=== PATIENT | male | born 1970 | race Two or more races ===

== ENCOUNTER 2021-06-14 13:58 | Inpatient (IN) | payer MEDICAID, OTHER ==
[~2021-06-14] VITALS: Ht 167.6 cm; Wt 100.2 kg
[2021-06-14] MEDS ORDERED: methylPREDNISolone SOD SUCC 125 MG/2 ML VL IV ONE (14:15)
[2021-06-14] MEDS ORDERED: ACETAMINOPHEN 325 MG TAB PO ONE (14:26)
[2021-06-14 16:15] LABS: Basophils # (auto) 0 10 ^3/uL (0-0.2); Basophils % (auto) 0.6 % (0.0-2.0); Eosinophils # (auto) 0 10 ^3/uL (0-0.8); Hematocrit 43.7 % (41.0-53.0); Hemoglobin 14.8 g/dL (13.5-17.5); Lymphocytes # (auto) 0.5 10 ^3/uL (0.4-5.4); Lymphocytes % (auto) 10.9 % (10.0-50.0); Mean Corpuscular Hemoglobin 30.4 pg (28.0-32.0); Mean Corpuscular Hgb Conc. 33.8 g/dL (32.0-36.0); Monocytes # (auto) 0.3 10 ^3/uL (0-1.3); Monocytes % (auto) 6.6 % (0.0-12.0); Neutrophils # (auto) 4.1 10 ^3/uL (1.6-8.6); Neutrophils % (auto) 81.9 % (37.0-80.0); Nucleated Red Blood Cells % 0.1 %; Red Blood Cells 4.86 10^6/uL (4.5-5.90); Red Cell Distribution Width 13.9 % (11.8-14.3)
[2021-06-14 16:25] LABS: Albumin 3.1 g/dL (3.4-5.0); Calcium 8.2 mg/dL (8.5-10.1); Magnesium 2.4 mg/dL (1.6-2.6); Potassium 3.6 mmol/L (3.5-5.1)
[2021-06-14 16:33] LABS: BUN/Creatinine Ratio 19.1; Bilirubin, Total 0.9 mg/dL (0.2-1.0); Total Protein 7.8 g/dL (6.4-8.2)
[2021-06-14] MEDS ORDERED: TEMAZEPAM 15 MG CAP PO PRN (21:15)
[2021-06-14] MEDS ORDERED: DEXTROSE (50%) 50ML SYRG IV PRN (21:15)
[2021-06-14] MEDS ORDERED: ACETAMINOPHEN 500 MG TAB PO PRN (21:15)
[2021-06-14] MEDS ORDERED: MORPHINE SULFATE INJECTION 2 MG/ML SYRG IV PRN (21:15)
[2021-06-14] MEDS ORDERED: REMDESIVIR PER PHARMACY 0 ML IV SCH (21:15)
[2021-06-14] MEDS ORDERED: ONDANSETRON HCL 4 MG/2 ML VIAL IV PRN (21:15)
[2021-06-14] MEDS ORDERED: NITROGLYCERIN 0.4 MG SL TAB SL PRN (21:15)
[2021-06-14] MEDS ORDERED: AZITHROMYCIN 500MG/ 250ML 250 ML IV ONE (21:15)
[2021-06-14] MEDS ORDERED: cefTRIAXone 1GM/50ML D5W 50 ML IV ONE (21:30)
[2021-06-14 21:49] LABS: Magnesium 2.1 mg/dL (1.6-2.6)
[2021-06-14] MEDS ORDERED: ENOXAPARIN SOD 40 MG/0.4 ML SYRINGE SC SCH ×2 (22:00)
[2021-06-14] MEDS ORDERED: DexAMETHasone SOD PHOS 10MG/1ML VIAL INJ IV SCH (22:00)
[2021-06-14] MEDS: ACCU-CHEK COMFORT CURVE STRIP VI SCH (22:05)
[2021-06-14] MEDS: InsuLIN REG 1unit/0.01ml Soln (100units/ml) SC SCH (22:10)
[2021-06-14] MEDS ORDERED: ATORVASTATIN 20 MG TAB PO ONE (22:30)
[2021-06-14] MEDS ORDERED: ASPirin 81 mg TAB PO ONE (22:30)
[2021-06-14] MEDS ORDERED: REMDESIVIR 200 MG in NS 210ml LOADING DOSE ADULT IV ONE (22:30)
[2021-06-14] MEDS ORDERED: ENOXAPARIN SOD 100 MG/1 ML SYRINGE SC ONE (22:30)
[2021-06-14 22:46] VITALS: BP 114/72
[2021-06-14 22:49] LABS: Urine Bacteria NONE SEEN /hpf (None Seen); Urine Blood TRACE /uL (Negative); Urine Mucus FEW (None Seen); Urine Specific Gravity 1.031 (1.001-1.035); Urine WBC 2 /hpf (0 - 3)
[2021-06-15 02:00] VITALS: BP 129/86
[2021-06-15] MEDS: AZITHROMYCIN 500MG/ 250ML 250 ML IV ONE ×2 (02:00→03:00)
[2021-06-15 05:00] VITALS: BP 104/54
[2021-06-15 05:57] LABS: Basophils # (auto) 0 10 ^3/uL (0-0.2); Basophils % (auto) 0.6 % (0.0-2.0); Eosinophils # (auto) 0 10 ^3/uL (0-0.8); Hematocrit 43.3 % (41.0-53.0); Hemoglobin 14.8 g/dL (13.5-17.5); Lymphocytes # (auto) 0.6 10 ^3/uL (0.4-5.4); Lymphocytes % (auto) 16.3 % (10.0-50.0); Mean Corpuscular Hemoglobin 30.9 pg (28.0-32.0); Mean Corpuscular Hgb Conc. 34.2 g/dL (32.0-36.0); Mean Corpuscular Volume 90.3 fL (80.0-100.0); Monocytes # (auto) 0.4 10 ^3/uL (0-1.3); Monocytes % (auto) 9.6 % (0.0-12.0); Neutrophils # (auto) 2.9 10 ^3/uL (1.6-8.6); Neutrophils % (auto) 73.5 % (37.0-80.0); Nucleated Red Blood Cells % 0.2 %; Red Blood Cells 4.79 10^6/uL (4.5-5.90); Red Cell Distribution Width 14.2 % (11.8-14.3)
[2021-06-15] MEDS: ACCU-CHEK COMFORT CURVE STRIP VI SCH ×4 (06:18→22:38)
[2021-06-15 06:19] LABS: Potassium 3.7 mmol/L (3.5-5.1)
[2021-06-15] MEDS: InsuLIN REG 1unit/0.01ml Soln (100units/ml) SC SCH ×4 (06:19→22:40)
[2021-06-15 06:29] LABS: Albumin 2.6 g/dL (3.4-5.0); BUN/Creatinine Ratio 25.3; Bilirubin, Total 0.6 mg/dL (0.2-1.0); Calcium 7.9 mg/dL (8.5-10.1); Total Protein 7.2 g/dL (6.4-8.2)
[2021-06-15] MEDS ORDERED: METF-370 PO (07:50)
[2021-06-15 09:00] VITALS: BP 107/76
[2021-06-15] MEDS: ALBUTEROL SULF HFA 90MCG INH 200DOSE IN PRN ×2 (09:15→19:49)
[2021-06-15] MEDS ORDERED: ASPirin 81 mg TAB PO SCH (10:00)
[2021-06-15] MEDS: DexAMETHasone SOD PHOS 10MG/1ML VIAL INJ IV SCH (10:19)
[2021-06-15] MEDS: ZINC SULFATE 220mg CAP or TAB PO SCH (10:22)
[2021-06-15] MEDS: ASCORBIC ACID 1,000 MG TAB PO SCH (10:22)
[2021-06-15] MEDS: ENOXAPARIN SOD 40 MG/0.4 ML SYRINGE SC SCH ×2 (10:22→22:21)
[2021-06-15] MEDS: PANTOPRAZOLE 40 MG TAB PO SCH (10:22)
[2021-06-15] MEDS: CHOLECALCIFEROL (VITD3) 2,000 UNIT CAP/TAB PO SCH (10:22)
[2021-06-15 13:00] VITALS: BP 118/67
[2021-06-15] MEDS: REMDESIVIR 100mg 100 MG in SODIUM CHL 0.9% 230 ML IV SCH (16:59)
[2021-06-15 17:00] VITALS: BP 116/85
[2021-06-15] MEDS: cefTRIAXone 1GM/50ML D5W 50 ML IV SCH (21:28)
[2021-06-15 22:00] VITALS: BP 117/80
[2021-06-15] MEDS ORDERED: INSULIN LANTUS (GLARGINE) 1 /0.01ml (100units/ml) SC SCH (22:00)
[2021-06-15] MEDS: ATORVASTATIN 20 MG TAB PO SCH (22:22)
[2021-06-15] MEDS: AZITHROMYCIN 500MG/ 250ML 250 ML IV SCH (22:22)
[2021-06-15 23:26] LABS: Alcohol, Urine < 3.0 mg/dL (0-10); Amphetamine Screen, Urine NEGATIVE (NEGATIVE); Barbiturate Scree,Urine NEGATIVE (NEGATIVE); Benzodiazephine Screen, Urine NEGATIVE (NEGATIVE); Cannabinoid Screen, Urine NEGATIVE (NEGATIVE); Cocaine Screen, Urine NEGATIVE (NEGATIVE); Opiate Scree,Urine NEGATIVE (NEGATIVE); Phencyclidine Screen, Urine NEGATIVE (NEGATIVE)
[2021-06-16 05:00] VITALS: BP 112/75
[2021-06-16 05:47] LABS: INR 1.05 (0.9-1.15); Potassium 3.8 mmol/L (3.5-5.1)
[2021-06-16 05:57] LABS: Albumin 2.4 g/dL (3.4-5.0); BUN/Creatinine Ratio 29.1; Bilirubin, Total 0.4 mg/dL (0.2-1.0); Calcium 7.9 mg/dL (8.5-10.1); Magnesium 2.9 mg/dL (1.6-2.6); Total Protein 6.7 g/dL (6.4-8.2)
[2021-06-16] MEDS: InsuLIN REG 1unit/0.01ml Soln (100units/ml) SC SCH ×4 (06:26→20:59)
[2021-06-16] MEDS: ACCU-CHEK COMFORT CURVE STRIP VI SCH ×4 (06:26→20:59)
[2021-06-16] MEDS: ALBUTEROL SULF HFA 90MCG INH 200DOSE IN PRN ×2 (07:16→21:31)
[2021-06-16 09:00] VITALS: BP 110/68
[2021-06-16] MEDS: DexAMETHasone SOD PHOS 10MG/1ML VIAL INJ IV SCH (09:04)
[2021-06-16] MEDS: ASPirin 81 mg TAB PO SCH (09:04)
[2021-06-16] MEDS: ASCORBIC ACID 1,000 MG TAB PO SCH (09:05)
[2021-06-16] MEDS: ZINC SULFATE 220mg CAP or TAB PO SCH (09:05)
[2021-06-16] MEDS: PANTOPRAZOLE 40 MG TAB PO SCH (09:05)
[2021-06-16] MEDS: CHOLECALCIFEROL (VITD3) 2,000 UNIT CAP/TAB PO SCH (09:05)
[2021-06-16] MEDS: ENOXAPARIN SOD 40 MG/0.4 ML SYRINGE SC SCH ×2 (09:06→20:59)
[2021-06-16] MEDS ORDERED: VANCOMYCIN PER PHARMACY 0 MG IV SCH (10:45)
[2021-06-16] MEDS: VANCOMYCIN 1GM/250ML 250 ML IV SCH ×2 (11:15→19:40)
[2021-06-16 13:00] VITALS: BP 113/73
[2021-06-16] MEDS: REMDESIVIR 100mg 100 MG in SODIUM CHL 0.9% 230 ML IV SCH (14:37)
[2021-06-16 17:00] VITALS: BP 107/73
[2021-06-16] MEDS: cefTRIAXone 1GM/50ML D5W 50 ML IV SCH (20:58)
[2021-06-16] MEDS: ATORVASTATIN 20 MG TAB PO SCH (20:59)
[2021-06-16 22:00] VITALS: BP 123/72
[2021-06-16] MEDS ORDERED: INSULIN LANTUS (GLARGINE) 1 /0.01ml (100units/ml) SC SCH (22:00)
[2021-06-16] MEDS: AZITHROMYCIN 500MG/ 250ML 250 ML IV SCH (22:04)
[2021-06-17] MEDS: VANCOMYCIN 1GM/250ML 250 ML IV SCH ×3 (03:38→18:21)
[2021-06-17 05:00] VITALS: BP 104/74
[2021-06-17 05:45] LABS: Basophils # (auto) 0 10 ^3/uL (0-0.2); Eosinophils # (auto) 0 10 ^3/uL (0-0.8); Hematocrit 40.1 % (41.0-53.0); Hemoglobin 13.7 g/dL (13.5-17.5); Lymphocytes # (auto) 0.8 10 ^3/uL (0.4-5.4); Lymphocytes % (auto) 10.9 % (10.0-50.0); Mean Corpuscular Hemoglobin 30.8 pg (28.0-32.0); Mean Corpuscular Hgb Conc. 34.1 g/dL (32.0-36.0); Mean Corpuscular Volume 90.2 fL (80.0-100.0); Monocytes # (auto) 0.7 10 ^3/uL (0-1.3); Monocytes % (auto) 10.6 % (0.0-12.0); Neutrophils # (auto) 5.4 10 ^3/uL (1.6-8.6); Neutrophils % (auto) 78.5 % (37.0-80.0); Nucleated Red Blood Cells % 0.1 %; Red Blood Cells 4.44 10^6/uL (4.5-5.90); Red Cell Distribution Width 14.1 % (11.8-14.3); White Blood Cell 6.9 10^3/uL (4.4-10.8)
[2021-06-17] MEDS: ALBUTEROL SULF HFA 90MCG INH 200DOSE IN PRN ×2 (05:49→19:38)
[2021-06-17 06:11] LABS: Albumin 2.2 g/dL (3.4-5.0); Calcium 7.8 mg/dL (8.5-10.1)
[2021-06-17] MEDS: ACCU-CHEK COMFORT CURVE STRIP VI SCH ×3 (06:11→16:56)
[2021-06-17] MEDS: InsuLIN REG 1unit/0.01ml Soln (100units/ml) SC SCH ×3 (06:14→16:58)
[2021-06-17 06:21] LABS: BUN/Creatinine Ratio 23.2; Bilirubin, Direct 0.2 mg/dL (0-0.2); Bilirubin, Total 0.5 mg/dL (0.2-1.0); CRP High Sensitivity 7.96 mg/dL (< 0.3); Total Protein 6.4 g/dL (6.4-8.2)
[2021-06-17] MEDS: ASCORBIC ACID 1,000 MG TAB PO SCH (08:26)
[2021-06-17] MEDS: DexAMETHasone SOD PHOS 10MG/1ML VIAL INJ IV SCH (08:26)
[2021-06-17] MEDS: ENOXAPARIN SOD 40 MG/0.4 ML SYRINGE SC SCH ×2 (08:26→21:14)
[2021-06-17] MEDS: ASPirin 81 mg TAB PO SCH (08:26)
[2021-06-17] MEDS: CHOLECALCIFEROL (VITD3) 2,000 UNIT CAP/TAB PO SCH (08:27)
[2021-06-17] MEDS: ZINC SULFATE 220mg CAP or TAB PO SCH (08:49)
[2021-06-17] MEDS: PANTOPRAZOLE 40 MG TAB PO SCH (08:50)
[2021-06-17 09:00] VITALS: BP 113/70
[2021-06-17 12:43] VITALS: BP 109/70
[2021-06-17] MEDS ORDERED: DEXTROSE (50%) 50ML SYRG IV PRN (15:00)
[2021-06-17] MEDS: REMDESIVIR 100mg 100 MG in SODIUM CHL 0.9% 230 ML IV SCH (15:00)
[2021-06-17] MEDS ORDERED: FUROSEMIDE 20 MG/2 ML VIAL IV ONE (15:00)
[2021-06-17 17:00] VITALS: BP 111/84
[2021-06-17] MEDS: INSULIN LANTUS (GLARGINE) 1 /0.01ml (100units/ml) SC SCH (21:06)
[2021-06-17] MEDS: cefTRIAXone 1GM/50ML D5W 50 ML IV SCH (21:13)
[2021-06-17] MEDS: ATORVASTATIN 20 MG TAB PO SCH (21:14)
[2021-06-17] MEDS: AZITHROMYCIN 500MG/ 250ML 250 ML IV SCH (21:14)
[2021-06-17 22:00] VITALS: BP 106/69
[2021-06-18] VITALS (7 sets, daily range): BP systolic 106–117; BP diastolic 69–83
[2021-06-18] MEDS: InsuLIN REG 1unit/0.01ml Soln (100units/ml) SC SCH ×5 (00:16→22:58)
[2021-06-18] MEDS: ACCU-CHEK COMFORT CURVE STRIP VI SCH ×5 (00:16→22:48)
[2021-06-18] MEDS: VANCOMYCIN 1GM/250ML 250 ML IV SCH ×4 (00:17→20:58)
[2021-06-18] MEDS: ALBUTEROL SULF HFA 90MCG INH 200DOSE IN PRN ×2 (06:30→21:22)
[2021-06-18 07:31] LABS: Basophils # (auto) 0 10 ^3/uL (0-0.2); Basophils % (auto) 0.1 % (0.0-2.0); Eosinophils # (auto) 0 10 ^3/uL (0-0.8); Hematocrit 42.1 % (41.0-53.0); Hemoglobin 14.2 g/dL (13.5-17.5); Lymphocytes # (auto) 0.9 10 ^3/uL (0.4-5.4); Lymphocytes % (auto) 11.1 % (10.0-50.0); Mean Corpuscular Hemoglobin 30.5 pg (28.0-32.0); Mean Corpuscular Hgb Conc. 33.7 g/dL (32.0-36.0); Mean Corpuscular Volume 90.3 fL (80.0-100.0); Monocytes # (auto) 0.9 10 ^3/uL (0-1.3); Neutrophils # (auto) 6.5 10 ^3/uL (1.6-8.6); Neutrophils % (auto) 77.8 % (37.0-80.0); Red Blood Cells 4.66 10^6/uL (4.5-5.90); White Blood Cell 8.3 10^3/uL (4.4-10.8)
[2021-06-18 07:52] LABS: Albumin 2.2 g/dL (3.4-5.0); Calcium 7.9 mg/dL (8.5-10.1); Potassium 3.9 mmol/L (3.5-5.1)
[2021-06-18 08:00] LABS: BUN/Creatinine Ratio 26.7; Bilirubin, Total 0.5 mg/dL (0.2-1.0); CRP High Sensitivity 3.99 mg/dL (< 0.3); Total Protein 6.4 g/dL (6.4-8.2)
[2021-06-18] MEDS: ZINC SULFATE 220mg CAP or TAB PO SCH (08:42)
[2021-06-18] MEDS: FUROSEMIDE 20 MG/2 ML VIAL IV SCH (08:42)
[2021-06-18] MEDS: ASPirin 81 mg TAB PO SCH (08:42)
[2021-06-18] MEDS: ASCORBIC ACID 1,000 MG TAB PO SCH (08:43)
[2021-06-18] MEDS: DexAMETHasone SOD PHOS 10MG/1ML VIAL INJ IV SCH (08:43)
[2021-06-18] MEDS: CHOLECALCIFEROL (VITD3) 2,000 UNIT CAP/TAB PO SCH (08:43)
[2021-06-18] MEDS: ENOXAPARIN SOD 40 MG/0.4 ML SYRINGE SC SCH ×2 (08:43→22:45)
[2021-06-18] MEDS: PANTOPRAZOLE 40 MG TAB PO SCH (08:43)
[2021-06-18] MEDS: REMDESIVIR 100mg 100 MG in SODIUM CHL 0.9% 230 ML IV SCH (15:27)
[2021-06-18 17:20] LABS: Amphetamine Screen, Urine NEGATIVE (NEGATIVE); Barbiturate Scree,Urine NEGATIVE (NEGATIVE); Benzodiazephine Screen, Urine NEGATIVE (NEGATIVE); Cannabinoid Screen, Urine NEGATIVE (NEGATIVE); Cocaine Screen, Urine NEGATIVE (NEGATIVE); Opiate Scree,Urine NEGATIVE (NEGATIVE); Phencyclidine Screen, Urine NEGATIVE (NEGATIVE)
[2021-06-18] MEDS: cefTRIAXone 1GM/50ML D5W 50 ML IV SCH (22:44)
[2021-06-18] MEDS: ATORVASTATIN 20 MG TAB PO SCH (22:45)
[2021-06-18] MEDS: INSULIN LANTUS (GLARGINE) 1 /0.01ml (100units/ml) SC SCH (22:47)
[2021-06-19] MEDS: AZITHROMYCIN 500MG/ 250ML 250 ML IV SCH ×2 (00:56→22:00)
[2021-06-19] MEDS: VANCOMYCIN 1GM/250ML 250 ML IV SCH ×2 (02:00→09:09)
[2021-06-19 04:49] VITALS: BP 113/83
[2021-06-19] MEDS: ACCU-CHEK COMFORT CURVE STRIP VI SCH ×4 (05:04→23:36)
[2021-06-19] MEDS: InsuLIN REG 1unit/0.01ml Soln (100units/ml) SC SCH ×4 (05:37→23:44)
[2021-06-19] MEDS: ALBUTEROL SULF HFA 90MCG INH 200DOSE IN PRN ×2 (05:55→20:22)
[2021-06-19 07:24] LABS: Potassium 3.9 mmol/L (3.5-5.1)
[2021-06-19 07:33] LABS: Albumin 2.3 g/dL (3.4-5.0); Bilirubin, Direct 0.2 mg/dL (0-0.2); Bilirubin, Total 0.5 mg/dL (0.2-1.0); Magnesium 2.9 mg/dL (1.6-2.6); Total Protein 6.6 g/dL (6.4-8.2)
[2021-06-19 08:50] VITALS: BP 113/76
[2021-06-19] MEDS: DexAMETHasone SOD PHOS 10MG/1ML VIAL INJ IV SCH (09:09)
[2021-06-19] MEDS: ASPirin 81 mg TAB PO SCH (09:10)
[2021-06-19] MEDS: ZINC SULFATE 220mg CAP or TAB PO SCH (09:10)
[2021-06-19] MEDS: ASCORBIC ACID 1,000 MG TAB PO SCH (09:10)
[2021-06-19] MEDS: CHOLECALCIFEROL (VITD3) 2,000 UNIT CAP/TAB PO SCH (09:10)
[2021-06-19] MEDS: FUROSEMIDE 20 MG/2 ML VIAL IV SCH (09:10)
[2021-06-19] MEDS: PANTOPRAZOLE 40 MG TAB PO SCH (09:10)
[2021-06-19] MEDS: ENOXAPARIN SOD 40 MG/0.4 ML SYRINGE SC SCH ×2 (09:12→21:16)
[2021-06-19 12:50] VITALS: BP 110/72
[2021-06-19] MEDS ORDERED: POTASSIUM CHL 20 Meq TABLET PO ONE (15:00)
[2021-06-19 16:50] VITALS: BP 116/83
[2021-06-19] MEDS: cefTRIAXone 1GM/50ML D5W 50 ML IV SCH (20:55)
[2021-06-19] MEDS: ATORVASTATIN 20 MG TAB PO SCH (21:15)
[2021-06-19] MEDS: INSULIN LANTUS (GLARGINE) 1 /0.01ml (100units/ml) SC SCH (21:21)
[2021-06-19 22:00] VITALS: BP 103/72
[2021-06-20 05:00] VITALS: BP 123/70
[2021-06-20] MEDS: ALBUTEROL SULF HFA 90MCG INH 200DOSE IN PRN ×2 (05:52→18:11)
[2021-06-20] MEDS: ACCU-CHEK COMFORT CURVE STRIP VI SCH ×3 (06:13→18:00)
[2021-06-20] MEDS: InsuLIN REG 1unit/0.01ml Soln (100units/ml) SC SCH ×3 (06:15→18:00)
[2021-06-20 08:41] VITALS: BP 102/68
[2021-06-20] MEDS: ENOXAPARIN SOD 40 MG/0.4 ML SYRINGE SC SCH ×2 (10:00→22:18)
[2021-06-20] MEDS: ASPirin 81 mg TAB PO SCH (10:00)
[2021-06-20] MEDS: DexAMETHasone SOD PHOS 10MG/1ML VIAL INJ IV SCH (10:37)
[2021-06-20] MEDS: CHOLECALCIFEROL (VITD3) 2,000 UNIT CAP/TAB PO SCH (10:39)
[2021-06-20] MEDS: ASCORBIC ACID 1,000 MG TAB PO SCH (10:39)
[2021-06-20] MEDS: ZINC SULFATE 220mg CAP or TAB PO SCH (10:39)
[2021-06-20] MEDS: PANTOPRAZOLE 40 MG TAB PO SCH (10:39)
[2021-06-20] MEDS: FUROSEMIDE 20 MG/2 ML VIAL IV SCH (10:39)
[2021-06-20 12:32] VITALS: BP 109/70
[2021-06-20] MEDS ORDERED: IOHEXOL 350 MG/ML 100ML IJ ONE ×2 (15:25→16:41)
[2021-06-20] MEDS ORDERED: LIDOCAINE 2%HCL (LOCAL ANESTH.) INJ 20ML MDV ONE (15:25)
[2021-06-20] MEDS ORDERED: fentaNYL CITRATE 100 MCG/2 ML VL ONE (15:53)
[2021-06-20] MEDS ORDERED: SODIUM CHL 0.9% 0 ML ONE (15:53)
[2021-06-20] MEDS ORDERED: ANGIOMAX 250 MG VIAL IV ONE (15:53)
[2021-06-20] MEDS ORDERED: MIDAZOLAM HCL 2MG/2ML 2ml VIAL (1mg/ml) ONE (15:53)
[2021-06-20 21:29] VITALS: BP 121/79
[2021-06-20] MEDS: cefTRIAXone 1GM/50ML D5W 50 ML IV SCH (22:08)
[2021-06-20] MEDS: ATORVASTATIN 20 MG TAB PO SCH (22:18)
[2021-06-20] MEDS: INSULIN LANTUS (GLARGINE) 1 /0.01ml (100units/ml) SC SCH (22:22)
[2021-06-21] MEDS: ACCU-CHEK COMFORT CURVE STRIP VI SCH ×4 (00:27→16:29)
[2021-06-21] MEDS: InsuLIN REG 1unit/0.01ml Soln (100units/ml) SC SCH ×4 (00:30→16:44)
[2021-06-21 03:20] VITALS: BP 121/79
[2021-06-21 04:56] VITALS: BP 101/71
[2021-06-21 06:18] LABS: BUN/Creatinine Ratio 21.7; Calcium 8.1 mg/dL (8.5-10.1); Potassium 4.1 mmol/L (3.5-5.1)
[2021-06-21] MEDS: ALBUTEROL SULF HFA 90MCG INH 200DOSE IN PRN (07:50)
[2021-06-21 08:33] VITALS: BP 108/79
[2021-06-21] MEDS: CHOLECALCIFEROL (VITD3) 2,000 UNIT CAP/TAB PO SCH (09:01)
[2021-06-21] MEDS: DexAMETHasone SOD PHOS 10MG/1ML VIAL INJ IV SCH (09:01)
[2021-06-21] MEDS: PANTOPRAZOLE 40 MG TAB PO SCH (09:01)
[2021-06-21] MEDS: ASCORBIC ACID 1,000 MG TAB PO SCH (09:01)
[2021-06-21] MEDS: FUROSEMIDE 20 MG/2 ML VIAL IV SCH (09:01)
[2021-06-21] MEDS: ASPirin 81 mg TAB PO SCH (09:01)
[2021-06-21] MEDS: ZINC SULFATE 220mg CAP or TAB PO SCH (09:01)
[2021-06-21] MEDS: ENOXAPARIN SOD 40 MG/0.4 ML SYRINGE SC SCH (09:02)
[2021-06-21] MEDS ORDERED: METF-371 PO (11:12)
[2021-06-21] MEDS ORDERED: FURO1TAB33 PO ×2 (11:12→12:48)
[2021-06-21] MEDS ORDERED: POM ×2 (11:15→11:17)
[2021-06-21] MEDS ORDERED: ASCO10003 PO (12:48)
[2021-06-21] MEDS ORDERED: DEX4T PO (12:48)
[2021-06-21] MEDS ORDERED: ASPI-378 PO (12:48)
[2021-06-21] MEDS ORDERED: DOXY-286 PO (12:48)
[2021-06-21] MEDS ORDERED: INSLANTI SC (12:48)
[2021-06-21] MEDS ORDERED: ZINC220T6 PO (12:48)
[2021-06-21] MEDS ORDERED: CHOL20007 PO (12:48)
[2021-06-21] MEDS ORDERED: ALBUAER3 IN (12:48)
[2021-06-21] MEDS ORDERED: PANT40TA2 PO (12:48)
[2021-06-21] MEDS ORDERED: LISI20TA28 PO (12:53)
[2021-06-21] MEDS ORDERED: METO25TA5 PO (12:53)
[2021-06-21 12:55] VITALS: BP 119/85
[2021-06-21 14:05] VITALS: BP 108/79
[2021-06-21] MEDS ORDERED: LOSA25TA38 PO (14:44)
[2021-06-22] MEDS ORDERED: SACUBITRIL-VALSARTAN 24mg/26mg TAB PO SCH (10:00)
== END 2021-06-21 17:10 | disposition home or self-care (01) | DRG 720 ==
LOC: ER 13:58 → EDBD 13:58 → TELE 21:03 → TELE-EAST 23:59
PROVIDERS: ADMIT Nurse Practitioner; ATTEND Internal Medicine
PROC: XW033E5 Introduction of Remdesivir Anti-infective into Peripheral Vein, Percutaneous Approach, New Technology Group 5 (ICD-10-PCS; principal; 2021-06-14)
PROC: 4A023N7 Measurement of Cardiac Sampling and Pressure, Left Heart, Percutaneous Approach (ICD-10-PCS; 2021-06-20)
PROC: B2111ZZ Fluoroscopy of Multiple Coronary Arteries using Low Osmolar Contrast (ICD-10-PCS; 2021-06-20)
PROC: B2151ZZ Fluoroscopy of Left Heart using Low Osmolar Contrast (ICD-10-PCS; 2021-06-20)
DX: A41.89 Other specified sepsis (principal); J96.01 Acute respiratory failure with hypoxia; J12.82 Pneumonia due to coronavirus disease 2019; U07.1 COVID-19; I50.23 Acute on chronic systolic (congestive) heart failure; D89.839 Cytokine release syndrome, grade unspecified; I21.A1 Myocardial infarction type 2; E66.9 Obesity, unspecified; E55.9 Vitamin D deficiency, unspecified; E78.5 Hyperlipidemia, unspecified; E11.59 Type 2 diabetes mellitus with other circulatory complications; I11.0 Hypertensive heart disease with heart failure; I42.0 Dilated cardiomyopathy; Z68.35 Body mass index [BMI] 35.0-35.9, adult
CPT/HCPCS: 36415; 71045; 80048; 80053; 80061; 80076; 80202; 80307; 81001; 82306; 82728; 82962; 83036; 83605; 83615; 83735; 83880; 84132; 84484; 85025; 85379; 85610; 86141; 86850; 86900; 86901; 87040; 87077; 87186; 87426; 93005; 93306; 93458; 94640; 96365; 96372; 96375; 99152; G0378; J0696; J1100; J1815; J2250

== ENCOUNTER 2021-07-02 10:09 | Emergency (ER) | payer MEDICAID ==
[~2021-07-02] VITALS: Ht 170.2 cm; Wt 111.1 kg
[~2021-07-02 10:09] MED LIST: ALBUAER3 IN; ASCO10003 PO; ASPI-378 PO; CHOL20007 PO; DEX4T PO; DOXY-286 PO; FURO1TAB33 PO; INSLANTI SC; LOSA25TA38 PO; METF-371 PO; METO25TA5 PO; PANT40TA2 PO; POM; ZINC220T6 PO
[2021-07-02 11:05] LABS: Basophils # (auto) 0.1 10 ^3/uL (0-0.2); Basophils % (auto) 0.8 % (0.0-2.0); Eosinophils # (auto) 0.1 10 ^3/uL (0-0.8); Eosinophils % (auto) 1.3 % (0.0-7.0); Hematocrit 45.8 % (41.0-53.0); Hemoglobin 15.6 g/dL (13.5-17.5); Lymphocytes % (auto) 21.5 % (10.0-50.0); Mean Corpuscular Hemoglobin 31.2 pg (28.0-32.0); Mean Corpuscular Volume 91.7 fL (80.0-100.0); Monocytes # (auto) 0.9 10 ^3/uL (0-1.3); Monocytes % (auto) 9.8 % (0.0-12.0); Neutrophils # (auto) 6.3 10 ^3/uL (1.6-8.6); Neutrophils % (auto) 66.6 % (37.0-80.0); Nucleated Red Blood Cells % 0.1 %; Red Blood Cells 4.99 10^6/uL (4.5-5.90); Red Cell Distribution Width 14.2 % (11.8-14.3); White Blood Cell 9.5 10^3/uL (4.4-10.8)
[2021-07-02 11:23] LABS: Albumin 2.7 g/dL (3.4-5.0); Potassium 4.2 mmol/L (3.5-5.1)
[2021-07-02 11:29] LABS: BUN/Creatinine Ratio 21.4; Bilirubin, Total 0.6 mg/dL (0.2-1.0); Total Protein 6.7 g/dL (6.4-8.2)
[2021-07-02] MEDS ORDERED: SODIUM CHLORIDE 0.9% 1,000 ML IV ONE (12:00)
[2021-07-02] MEDS ORDERED: InsuLIN REG 1unit/0.01ml Soln (100units/ml) IV ONE (12:00)
[2021-07-02 15:20] VITALS: BP 118/73
== END 2021-07-02 15:21 | disposition home or self-care (01) ==
LOC: ER 10:09
DX: E11.65 Type 2 diabetes mellitus with hyperglycemia (principal); R77.8 Other specified abnormalities of plasma proteins; Z79.82 Long term (current) use of aspirin; Z79.4 Long term (current) use of insulin; Z79.2 Long term (current) use of antibiotics; Z79.899 Other long term (current) drug therapy; Z20.822 Contact with and (suspected) exposure to COVID-19
CPT/HCPCS: 36415; 80053; 82962; 84484; 85025; 87426; 93005; 96361; 96374; 99284; J1815; J7030

== ENCOUNTER 2021-12-01 15:55 | Inpatient (IN) | payer MEDICAID ==
[~2021-12-01] VITALS: Ht 170.2 cm; Wt 85.6 kg
[~2021-12-01 15:55] MED LIST changes: -CHOL20007 PO; -METO25TA5 PO
[2021-12-01 16:19] LABS: Urine Bacteria NONE SEEN /hpf (None Seen); Urine Blood TRACE /uL (Negative); Urine Mucus FEW (None Seen); Urine Specific Gravity 1.031 (1.001-1.035); Urine WBC 2 /hpf (0 - 3)
[2021-12-01 16:42] LABS: Basophils # (auto) 0 10 ^3/uL (0-0.2); Basophils % (auto) 0.7 % (0.0-2.0); Eosinophils # (auto) 0.1 10 ^3/uL (0-0.8); Eosinophils % (auto) 1.5 % (0.0-7.0); Hematocrit 40.5 % (41.0-53.0); Hemoglobin 13.7 g/dL (13.5-17.5); Lymphocytes # (auto) 1.7 10 ^3/uL (0.4-5.4); Lymphocytes % (auto) 30.7 % (10.0-50.0); Mean Corpuscular Hemoglobin 31.6 pg (28.0-32.0); Mean Corpuscular Hgb Conc. 33.9 g/dL (32.0-36.0); Mean Corpuscular Volume 93.3 fL (80.0-100.0); Monocytes # (auto) 0.5 10 ^3/uL (0-1.3); Monocytes % (auto) 8.8 % (0.0-12.0); Neutrophils # (auto) 3.3 10 ^3/uL (1.6-8.6); Neutrophils % (auto) 58.3 % (37.0-80.0); Nucleated Red Blood Cells % 0.1 %; Red Blood Cells 4.34 10^6/uL (4.5-5.90); Red Cell Distribution Width 14.1 % (11.8-14.3); White Blood Cell 5.6 10^3/uL (4.4-10.8)
[2021-12-01 16:59] LABS: Albumin 3.4 g/dL (3.4-5.0); BUN/Creatinine Ratio 10.3; Calcium 8.7 mg/dL (8.5-10.1); Magnesium 2.4 mg/dL (1.6-2.6); Potassium 4.3 mmol/L (3.5-5.1)
[2021-12-01 17:02] LABS: Bilirubin, Total 0.6 mg/dL (0.2-1.0); Total Protein 7.2 g/dL (6.4-8.2)
[2021-12-01] MEDS ORDERED: ENOXAPARIN SOD 100 MG/1 ML SYRINGE SC ONE (17:45)
[2021-12-01 18:15] LABS: Alcohol, Urine < 3.0 mg/dL (0-10); Amphetamine Screen, Urine NEGATIVE (NEGATIVE); Barbiturate Scree,Urine NEGATIVE (NEGATIVE); Benzodiazephine Screen, Urine NEGATIVE (NEGATIVE); Cannabinoid Screen, Urine NEGATIVE (NEGATIVE); Cocaine Screen, Urine NEGATIVE (NEGATIVE); Opiate Scree,Urine NEGATIVE (NEGATIVE); Phencyclidine Screen, Urine NEGATIVE (NEGATIVE)
[2021-12-01] MEDS ORDERED: MORPHINE SULFATE 4 MG/ML SYR/VIAL IV ONE (21:45)
[2021-12-01] MEDS ORDERED: ACETAMINOPHEN 325 MG TAB PO ONE (21:45)
[2021-12-01] MEDS ORDERED: ONDANSETRON HCL 4 MG/2 ML VIAL IV PRN (21:45)
[2021-12-01] MEDS ORDERED: NITROGLYCERIN 0.4 MG SL TAB SL PRN (21:45)
[2021-12-01] MEDS ORDERED: MORPHINE SULFATE INJECTION 2 MG/ML SYRG IV PRN (21:45)
[2021-12-01] MEDS ORDERED: FUROSEMIDE 40 MG/4 ML VIAL IV ONE (21:45)
[2021-12-01] MEDS ORDERED: DEXTROSE (50%) 50ML SYRG IV PRN (21:45)
[2021-12-01] MEDS ORDERED: TEMAZEPAM 15 MG CAP PO PRN (21:45)
[2021-12-02] VITALS (7 sets, daily range): BP systolic 128–152; BP diastolic 72–106
[2021-12-02] MEDS: ACCU-CHEK COMFORT CURVE STRIP VI SCH ×5 (00:35→22:31)
[2021-12-02] MEDS: InsuLIN REG 1unit/0.01ml Soln (100units/ml) SC SCH ×5 (00:41→22:45)
[2021-12-02] MEDS: FUROSEMIDE 20 MG/2 ML VIAL IV SCH ×2 (05:40→18:00)
[2021-12-02 06:31] LABS: Potassium 3.6 mmol/L (3.5-5.1)
[2021-12-02 06:43] LABS: Albumin 3.2 g/dL (3.4-5.0); BUN/Creatinine Ratio 16.3; Bilirubin, Total 0.8 mg/dL (0.2-1.0); Calcium 8.5 mg/dL (8.5-10.1); Total Protein 7.2 g/dL (6.4-8.2)
[2021-12-02 07:21] LABS: Basophils # (auto) 0 10 ^3/uL (0-0.2); Basophils % (auto) 0.5 % (0.0-2.0); Eosinophils # (auto) 0.1 10 ^3/uL (0-0.8); Hematocrit 38.5 % (41.0-53.0); Hemoglobin 13.4 g/dL (13.5-17.5); Lymphocytes # (auto) 1.7 10 ^3/uL (0.4-5.4); Lymphocytes % (auto) 28.7 % (10.0-50.0); Mean Corpuscular Hemoglobin 32.6 pg (28.0-32.0); Mean Corpuscular Hgb Conc. 34.8 g/dL (32.0-36.0); Mean Corpuscular Volume 93.7 fL (80.0-100.0); Monocytes # (auto) 0.5 10 ^3/uL (0-1.3); Neutrophils # (auto) 3.6 10 ^3/uL (1.6-8.6); Neutrophils % (auto) 59.8 % (37.0-80.0); Nucleated Red Blood Cells % 0.1 %; Red Cell Distribution Width 14.5 % (11.8-14.3)
[2021-12-02] MEDS: LOSARTAN POTASSIUM 25 MG TAB PO SCH (10:00)
[2021-12-02] MEDS ORDERED: METOPROLOL TARTRATE 25 MG TAB PO SCH (10:00)
[2021-12-02] MEDS ORDERED: PANTOPRAZOLE 40 MG TAB PO SCH (10:00)
[2021-12-02] MEDS: LISINOPRIL 20 MG TAB PO SCH (10:00)
[2021-12-02] MEDS: ASPirin 81 mg TAB PO SCH (10:00)
[2021-12-02] MEDS: ENOXAPARIN SOD 40 MG/0.4 ML SYRINGE SC SCH (10:00)
[2021-12-02] MEDS ORDERED: DAPAGLIFLOZIN 5 MG TAB PO ONE (10:30)
[2021-12-02] MEDS: ACETAMINOPHEN 325 MG TAB PO PRN (18:23)
[2021-12-02] MEDS: CARVEDILOL 12.5 MG TAB PO SCH (22:43)
[2021-12-03] MEDS: ACETAMINOPHEN 325 MG TAB PO PRN ×3 (04:53→21:01)
[2021-12-03 05:00] VITALS: BP 126/87
[2021-12-03] MEDS: FUROSEMIDE 20 MG/2 ML VIAL IV SCH ×2 (05:52→18:00)
[2021-12-03] MEDS: ACCU-CHEK COMFORT CURVE STRIP VI SCH ×4 (05:54→22:34)
[2021-12-03] MEDS: InsuLIN REG 1unit/0.01ml Soln (100units/ml) SC SCH ×4 (05:57→22:32)
[2021-12-03 09:01] VITALS: BP 114/82
[2021-12-03 09:42] LABS: BUN/Creatinine Ratio 17.9; Calcium 9.2 mg/dL (8.5-10.1); Potassium 3.5 mmol/L (3.5-5.1)
[2021-12-03] MEDS: CARVEDILOL 12.5 MG TAB PO SCH ×2 (10:00→22:34)
[2021-12-03] MEDS: ASPirin 81 mg TAB PO SCH (10:00)
[2021-12-03] MEDS: ENOXAPARIN SOD 40 MG/0.4 ML SYRINGE SC SCH (10:00)
[2021-12-03] MEDS: LISINOPRIL 20 MG TAB PO SCH (10:00)
[2021-12-03] MEDS: DAPAGLIFLOZIN 5 MG TAB PO SCH (10:00)
[2021-12-03] MEDS: LOSARTAN POTASSIUM 25 MG TAB PO SCH (10:00)
[2021-12-03 13:00] VITALS: BP 124/82
[2021-12-03 17:00] VITALS: BP 119/86
[2021-12-03 22:07] VITALS: BP 121/81
[2021-12-04 05:00] VITALS: BP 127/83
[2021-12-04] MEDS: ACCU-CHEK COMFORT CURVE STRIP VI SCH ×4 (06:13→22:22)
[2021-12-04] MEDS: InsuLIN REG 1unit/0.01ml Soln (100units/ml) SC SCH ×4 (06:13→22:56)
[2021-12-04] MEDS: FUROSEMIDE 20 MG/2 ML VIAL IV SCH ×2 (06:23→18:16)
[2021-12-04 08:00] VITALS: BP 107/68
[2021-12-04 10:00] VITALS: BP 107/68
[2021-12-04] MEDS: CARVEDILOL 12.5 MG TAB PO SCH ×2 (10:44→22:22)
[2021-12-04] MEDS: ASPirin 81 mg TAB PO SCH (10:44)
[2021-12-04] MEDS: LOSARTAN POTASSIUM 25 MG TAB PO SCH (10:45)
[2021-12-04] MEDS: DAPAGLIFLOZIN 5 MG TAB PO SCH (10:45)
[2021-12-04] MEDS: LISINOPRIL 20 MG TAB PO SCH (10:45)
[2021-12-04] MEDS: ENOXAPARIN SOD 40 MG/0.4 ML SYRINGE SC SCH (10:46)
[2021-12-04] MEDS: ACETAMINOPHEN 325 MG TAB PO PRN ×2 (10:52→17:02)
[2021-12-04 13:28] VITALS: BP 118/83
[2021-12-04 16:51] VITALS: BP 123/81
[2021-12-04 21:36] VITALS: BP 125/74
[2021-12-05 04:58] VITALS: BP 114/77
[2021-12-05] MEDS: FUROSEMIDE 20 MG/2 ML VIAL IV SCH (05:55)
[2021-12-05] MEDS: ACCU-CHEK COMFORT CURVE STRIP VI SCH ×2 (06:37→12:25)
[2021-12-05] MEDS: InsuLIN REG 1unit/0.01ml Soln (100units/ml) SC SCH ×2 (06:52→11:30)
[2021-12-05 09:00] VITALS: BP 105/64
[2021-12-05] MEDS: DAPAGLIFLOZIN 5 MG TAB PO SCH (09:33)
[2021-12-05] MEDS: ASPirin 81 mg TAB PO SCH (09:34)
[2021-12-05] MEDS: CARVEDILOL 12.5 MG TAB PO SCH (09:34)
[2021-12-05] MEDS: LISINOPRIL 20 MG TAB PO SCH (09:35)
[2021-12-05] MEDS: ENOXAPARIN SOD 40 MG/0.4 ML SYRINGE SC SCH (09:35)
[2021-12-05] MEDS: LOSARTAN POTASSIUM 25 MG TAB PO SCH (09:35)
[2021-12-05] MEDS ORDERED: CARV12.544 PO (10:18)
[2021-12-05] MEDS ORDERED: LOSA25TA2 PO (10:18)
[2021-12-05] MEDS ORDERED: LISI20TA28 PO (10:18)
[2021-12-05] MEDS ORDERED: DAPA1TAB4 PO (10:18)
[2021-12-05 13:00] VITALS: BP 92/62
== END 2021-12-05 17:42 | disposition home or self-care (01) | DRG 194 ==
LOC: ER 15:55 → TELE 21:40 → TELE-WESTW 23:17
PROVIDERS: ADMIT Nurse Practitioner; ATTEND Family Medicine
DX: I11.0 Hypertensive heart disease with heart failure (principal); I31.3 Pericardial effusion (noninflammatory); I42.0 Dilated cardiomyopathy; E11.21 Type 2 diabetes mellitus with diabetic nephropathy; I50.23 Acute on chronic systolic (congestive) heart failure; E11.40 Type 2 diabetes mellitus with diabetic neuropathy, unspecified; E11.65 Type 2 diabetes mellitus with hyperglycemia; R55 Syncope and collapse; I25.5 Ischemic cardiomyopathy; E66.9 Obesity, unspecified; E78.00 Pure hypercholesterolemia, unspecified; E78.5 Hyperlipidemia, unspecified; Z91.19 Patient's noncompliance with other medical treatment and regimen; Z79.4 Long term (current) use of insulin; Z80.42 Family history of malignant neoplasm of prostate; Z86.16 Personal history of COVID-19; Z68.36 Body mass index [BMI] 36.0-36.9, adult
CPT/HCPCS: 36415; 70450; 71045; 80048; 80053; 80307; 80320; 81001; 82962; 83735; 83880; 84484; 85025; 93005; 93306; 93886; 96372; 96374; G0378; J1815; J2405